=== PATIENT | male | born 1975 | race African-American/Black ===

== ENCOUNTER 2017-05-03 07:23 | Emergency (ER) | payer OTHER ==
[~2017-05-03] VITALS: Ht 177.8 cm; Wt 80.6 kg
[2017-05-03 07:29] VITALS: TEMP 37.4; Ht 177.8 cm; Wt 80.6 kg
[2017-05-03] MEDS ORDERED: MIRT15TA3 PO (07:58)
[2017-05-03 08:08] LABS: BASO % 0.3 %; BASO ABS # 0.02 K/uL (0-0.2); COMPLETE YES; EOS % 1.6 %; HEMATOCRIT 40.2 % (42-52); LYMPH % 16.3 %; MEAN CELL VOLUME 88.7 fL (80-100); MEAN CORPUSCULAR HEMOGLOBIN 30.2 pg (25-34); MEAN CORPUSCULAR HGB CONC 34.1 g/dl (32-36); MEAN PLATELET VOLUME 10.5 fL (7.4-10.4); MONO % 8.3 %; NEUT % 73.5 %; PLATELET COUNT 237 K/uL (130-400); RED BLOOD COUNT 4.53 M/uL (4.7-6.1); WHITE BLOOD COUNT 7.34 K/uL (4.8-10.8)
--- NOTE | 2017-05-03 08:10 | EMERGENCY ROOM VISIT NOTE ---
History Report prepared by Clayibbayron: Tami Avalos Under the Supervision of: Dr. Ranjan Anderson M.D. First contact with patient: 07:34 Chief Complaint: OVERDOSE (INTENTIONAL) Stated Complaint: OVERDOSE ON K2 History of Present Illness The patient is a 42 year old male who presents to the Emergency Room with complaints of intermittent left sided chest pain that occurred around 0530 this morning. He currently rates his discomfort as a 4/10 in severity. The patient states that his pain only lasted 10-20 seconds and describes his pain as a sharp pain. He states that he is a smoker. The patient denies any drug use. He denies any recent fall or injury. He denies any loss of consciousness, shortness of breath, nausea, or vomiting. The patient denies being on any blood pressure medications. He reports swelling in his left knee from any injury awhile ago. Per nursing notes the patient arrives from the correction with suspicion of a K2 overdose. Source of History: patient Onset: 0530 this morning Position: chest (left) Symptom Intensity: 4/10 Quality: sharp Timing: intermittent Associated Symptoms: No LOC, No SOB, No nausea, No vomiting Review of Systems See HPI for pertinent positives & negatives. A total of 10 systems reviewed and were otherwise negative. Past Medical & Surgical Medical Problems: (1) No Known Active Medical Problems Family History No pertinent family history stated. Social History Smoking Status: Current Every Day Smoker Housing Status: other (correction) Current/Historical Medications Scheduled Mirtazapine (Remeron), 15 MG PO HS Allergies Coded Allergies: No Known Allergies (Unverified , 05/03/17) Physical Exam Vital Signs Date Time Temp Pulse Resp B/P (MAP) Pulse Ox O2 Delivery O2 Flow Rate FiO2 05/03/17 11:12 88 18 130/88 99 Room Air 05/03/17 10:32 98 Nasal Cannula 3.0 05/03/17 10:07 76 20 131/81 99 05/03/17 09:02 129/89 05/03/17 08:53 80 18 98 05/03/17 08:31 101/82 05/03/17 08:23 86 18 97 05/03/17 08:06 87 05/03/17 08:01 117/82 05/03/17 07:29 37.4 98 18 144/2 97 Room Air Physical Exam GENERAL: Patient is well appearing and in no acute distress. HEENT: No acute trauma, normocephalic atraumatic, mucous membranes moist, no nasal congestion, no scleral icterus. NECK: No stridor, no adenopathy, no meningismus, trachea is midline. LUNGS: No dyspnea. Clear to auscultation and equal bilaterally. No wheeze, no rhonchi. HEART: Regular rate and rhythm. No murmurs, rubs, gallops appreciated. ABDOMEN: Soft, nontender, bowel sounds positive, no masses appreciated, no peritonitis. BACK: No midline tenderness, no CVA tenderness EXTREMITIES: Normal motion all extremities, no cyanosis, no edema. NEUROLOGIC: Alert and oriented, no acute motor or sensory deficits, no focal weakness, cranial nerves grossly intact. SKIN: No rash, no jaundice, no diaphoresis. Medical Decision & Procedures ER Provider Diagnostic Interpretation: X ray results are stated below per my interpretation and the radiologist's interpretation. CHEST ONE VIEW PORTABLE HISTORY: Atypical Chest Pain COMPARISON: None. FINDINGS: The left basilar linear densities suggesting scarring or atelectasis. The lungs are otherwise clear. No pleural effusions. No pneumothorax. The heart is normal in size. IMPRESSION: No acute process. Electronically signed by: Francisco Bird M.D. 05/03/2017 8:25 AM Dictated Date/Time: 05/03/2017 8:24 AM Laboratory Results 05/03/17 07:55 Red Blood Count 4.53, Mean Corpuscular Volume 88.7, Mean Corpuscular Hemoglobin 30.2, Mean Corpuscular Hemoglobin Concent 34.1, Mean Platelet Volume 10.5, Neutrophils (%) (Auto) 73.5, Lymphocytes (%) (Auto) 16.3, Monocytes (%) (Auto) 8.3, Eosinophils (%) (Auto) 1.6, Basophils (%) (Auto) 0.3, Neutrophils # (Auto) 5.39, Lymphocytes # (Auto) 1.20, Monocytes # (Auto) 0.61, Eosinophils # (Auto) 0.12, Basophils # (Auto) 0.02 05/03/17 07:55 Test 05/03/17 07:55 05/03/17 10:06 White Blood Count 7.34 K/uL (4.8-10.8) Red Blood Count 4.53 M/uL (4.7-6.1) Hemoglobin 13.7 g/dL (14.0-18.0) Hematocrit 40.2 % (42-52) Mean Corpuscular Volume 88.7 fL (80-100) Mean Corpuscular Hemoglobin 30.2 pg (25-34) Mean Corpuscular Hemoglobin Concent 34.1 g/dl (32-36) Platelet Count 237 K/uL (130-400) Mean Platelet Volume 10.5 fL (7.4-10.4) Neutrophils (%) (Auto) 73.5 % Lymphocytes (%) (Auto) 16.3 % Monocytes (%) (Auto) 8.3 % Eosinophils (%) (Auto) 1.6 % Basophils (%) (Auto) 0.3 % Neutrophils # (Auto) 5.39 K/uL (1.4-6.5) Lymphocytes # (Auto) 1.20 K/uL (1.2-3.4) Monocytes # (Auto) 0.61 K/uL (0.11-0.59) Eosinophils # (Auto) 0.12 K/uL (0-0.5) Basophils # (Auto) 0.02 K/uL (0-0.2) RDW Standard Deviation 41.4 fL (36.4-46.3) RDW Coefficient of Variation 12.7 % (11.5-14.5) Immature Granulocyte % (Auto) 0.0 % Immature Granulocyte # (Auto) 0.00 K/uL (0.00-0.02) D-Dimer 500 ug/L FEU (0-500) Anion Gap 7.0 mmol/L (3-11) Est Creatinine Clear Calc Drug Dose 97.5 ml/min Estimated GFR () 103.6 Estimated GFR (Non- 89.4 BUN/Creatinine Ratio 10.3 (10-20) Calcium Level 8.7 mg/dl (8.5-10.1) Total Creatine Kinase 1188 U/L (39-308) Creatine Kinase MB 4.4 ng/ml (0.5-3.6) Creatine Kinase MB Ratio 0.4 (0-3.0) Troponin I < 0.015 ng/ml (0-0.045) Salicylates Level < 1.7 mg/dl (2.8-20) Acetaminophen Level < 2 ug/ml (10-30) Bedside Troponin I < 0.030 ng/ml (0-0.045) Laboratory results as reviewed by me. Medications Administered Medications (Trade) Dose Ordered Sig/Alireza Route Start Time Stop Time Status Last Admin Dose Admin Sodium Chloride 1,000 ml @ 999 mls/hr Q1H1M STAT IV 05/03/17 08:42 05/03/17 09:42 DC 05/03/17 08:58 999 MLS/HR ECG Indication: chest pain Rate (beats per minute): 79 Rhythm: normal sinus Findings: no acute ischemic change, no ectopy ED Course 0736: The patient was evaluated in room A12B. A complete history and physical exam was performed. 0842: Ordered Sodium Chloride 1000 ml @ 999 mls/hr IV. 0845: I reevaluated the patient and he feels fine and denies any further chest pain. He admits to working out all weekend. He is agreeable to a repeat troponin and fluids. 1041: I reevaluated the patient and he is resting comfortably. I discussed the exam findings with him and I discussed the treatment plan. He verbalized complete understanding and agreement. He is ready for discharge. Medical Decision Differential: Cardiac Ischemia (STEMI, NSTEMI, Unstable Angina, etc), Aortic Dissection, Arrhythmia, Pulmonary Embolism, Pneumonia, Pneumothorax, MSK, Infectious, Pericarditis/Myocarditis, Esophageal Rupture, Gastrointestinal, amongst other pathologies entertained. 42 yr old male arrives with complaint of fleeting stabbing left chest pains throughout the morning. No evidence of ACS with normal EKG and trop x 2. No evidence PE and with Dimer wnl and normal vitals I do not feel CTA indicated. Patient admits he has been lifting heavily last few days, which explains mild CK elevation. No evidence renal failure nor compartment syndrome. Suspect pain is MSK which is likely due to increased lifting. Advised he will need to have repeat evaluation by correction doctor. Stable and breathing comfortably. Medication Reconcilliation Current Medication List: was personally reviewed by me Impression Primary Impression: Left sided chest pain Additional Impression: Elevated CK Scribe Attestation The scribe's documentation has been prepared under my direction and personally reviewed by me in its entirety. I confirm that the note above accurately reflects all work, treatment, procedures, and medical decision making performed by me. Departure Information Dispostion Home / Self-Care Referrals Kathleen RUSSELL (PCP) Forms Call Back Authorization, HOME CARE DOCUMENTATION FORM, IMPORTANT VISIT INFORMATION Patient Instructions My [facility] Additional Instructions Your CK level was somewhat elevated. This is do to over exertion. Rest and avoid exercise over the next few days. Keep well hydrated. Avoid any stimulants. Follow up with [facility] Provider in the next few days. Return if worsening pain, no urination for > 12 hours, passing out or other concerns. Problem Qualifiers
[2017-05-03 08:25] LABS: BLOOD UREA NITROGEN 11 mg/dl (7-18); BUN/CREATININE RATIO 10.3 (10-20); CALCIUM 8.7 mg/dl (8.5-10.1); CARBON DIOXIDE 27 mmol/L (21-32); CHLORIDE 105 mmol/L (98-107); CREATININE 1.04 mg/dl (0.60-1.40); GLUCOSE 162 mg/dl (70-99); POTASSIUM 4.1 mmol/L (3.5-5.1); SODIUM 139 mmol/L (136-145)
--- NOTE | 2017-05-03 08:26 | DIAGNOSTIC IMAGING REPORT ---
CHEST ONE VIEW PORTABLE HISTORY: Atypical Chest Pain COMPARISON: None. FINDINGS: The left basilar linear densities suggesting scarring or atelectasis. The lungs are otherwise clear. No pleural effusions. No pneumothorax. The heart is normal in size. IMPRESSION: No acute process. Electronically signed by: Francisco Bird M.D. 05/03/2017 8:25 AM Dictated Date/Time: 05/03/2017 8:24 AM
[2017-05-03 08:31] LABS: ACETAMINOPHEN < 2 ug/ml (10-30)
[2017-05-03 08:41] LABS: CKMB/CK RATIO 0.4 (0-3.0)
[2017-05-03] MEDS ORDERED: SODIUM CHLORIDE 0.9% 1000ML 1,000 ML IV STA (08:42)
[2017-05-03 10:32] VITALS: O2SAT 98
[2017-05-03 11:12] VITALS: BP 130/88; PULSE 88; O2SAT 99
== END 2017-05-03 11:30 | disposition home or self-care (01) ==
LOC: C.EDB 07:26 → C.EDA 11:30
DX: R07.9 Chest pain, unspecified (principal); R78.89 Finding of other specified substances, not normally found in blood; F17.200 Nicotine dependence, unspecified, uncomplicated; Z79.899 Other long term (current) drug therapy